=== PATIENT | female | born 1940 | race Two or more races ===

== ENCOUNTER 2017-05-28 17:48 | Emergency (ER) | payer OTHER ==
[~2017-05-28] VITALS: Ht 160 cm; Wt 65.8 kg
[~2017-05-28 17:48] MED LIST: FLUT50SP13; LEVO25TA6 PO; MOME200A INH; MONT10TA34 PO
[2017-05-28 18:16] VITALS: BP 123/76
== END 2017-05-28 20:54 | disposition home or self-care (01) ==
LOC: ER 17:53
DX: J40 Bronchitis, not specified as acute or chronic (principal); J45.909 Unspecified asthma, uncomplicated; I10 Essential (primary) hypertension
CPT/HCPCS: 71046

== ENCOUNTER 2019-01-05 09:08 | Emergency (ER) | payer OTHER ==
[~2019-01-05] VITALS: Ht 157.5 cm; Wt 64.9 kg
[2019-01-05 09:16] VITALS: BP 175/74
[2019-01-05] MEDS ORDERED: cefTRIAXone SOD 1,000 MG VL IM ONE (09:45)
== END 2019-01-05 11:07 | disposition home or self-care (01) ==
LOC: ER 09:11
DX: S90.871A Other superficial bite of right foot, initial encounter (principal); L03.115 Cellulitis of right lower limb; L02.611 Cutaneous abscess of right foot; W55.01XA Bitten by cat, initial encounter; Y93.89 Activity, other specified; Y99.8 Other external cause status; Y92.89 Other specified places as the place of occurrence of the external cause
CPT/HCPCS: 73630; 96372; 99283; J0696